=== PATIENT | female | born 1990 | race Caucasian/White ===

== ENCOUNTER → 2017-06-22 | Outpatient (CLI) | payer MEDICAID | LOC: HPND 08:29 | PROVIDERS: ATTEND Obstetrics & Gynecology | DX: O99.012 Anemia complicating pregnancy, second trimester (principal); O35.2XX0 Maternal care for (suspected) hereditary disease in fetus, not applicable or unspecified | CPT/HCPCS: 76811 ==

== ENCOUNTER → 2017-07-25 | Outpatient (CLI) | payer MEDICAID | LOC: HPND 09:45 | PROVIDERS: ATTEND Obstetrics & Gynecology | DX: O99.012 Anemia complicating pregnancy, second trimester (principal); O26.892 Other specified pregnancy related conditions, second trimester | CPT/HCPCS: 76816 ==